=== PATIENT | female | born 1965 | race American Indian/Alaskan Native ===

== ENCOUNTER 2018-08-05 17:36 | Inpatient (IN) | payer BC ==
[2018-08-05] MEDS ORDERED: ZOFRAN IV PRN (18:03)
[2018-08-05] MEDS ORDERED: MORPHINE IV PRN (18:04)
[2018-08-06 01:30] LABS: Basophils % (Auto) 0.3 % (0.0-1.8); Eosinophils % (Auto) 0.4 % (0.0-4.3); Hematocrit 38.8 % (30.3-42.9); Hemoglobin 13.2 gm/dl (10.1-14.3); Lymphocytes # (Auto) 1.3 K/mm3 (1.2-5.4); Lymphocytes % (Auto) 13.5 % (13.4-35.0); Mean Corpuscular HGB Conc 34 % (30-34); Mean Corpuscular Volume 87 fl (79-97); Monocytes # (Auto) 0.7 K/mm3 (0.0-0.8); Monocytes % (Auto) 7.6 % (0.0-7.3); Platelet Count 273 K/mm3 (140-440); Red Blood Count 4.47 M/mm3 (3.65-5.03); Red Cell Distribution Width 13.7 % (13.2-15.2)
[2018-08-06 01:34] LABS: INR 0.91 (0.87-1.13)
[2018-08-06 01:48] LABS: Alanine Aminotransferase 16 units/L (7-56); Albumin 3.6 g/dL (3.9-5); BUN/Creatinine Ratio 13; Blood Urea Nitrogen 8 mg/dL (7-17); Calcium 8.9 mg/dL (8.4-10.2); Hemolysis Index 9
--- NOTE | 2018-08-06 01:59 | History and Physical Report ---
History of Present Illness Date of examination: 08/06/18 Date of admission: 08/05/18 17:53 Chief complaint: abdominal pain History of present illness: 53 yo female with a hx of gastric bypass 2014 presented at outside hospital with 12 hour hx of acute worsening abdominal pain, with non bilious vomiting. She says she had a bowel movement several hours after the pain started, but does not remember passing gas since the pain began. She had normal labs and vitals, but completed a CT scan a/p that showed a small bowel obstruction. She was transferred to [facility] for treatment and care. She said about a year ago she was admitted for similar symptoms at an outside hospital for three days. She was given a laxative and a colonoscopy and told to follow up with GI. Past History Past Medical History: hypertension, other (mitral valve prolapse - symptomatic) Past Surgical History: , hysterectomy, Other (gastric bypass) Family history: other (unknown - she is adopted) Medications and Allergies Allergies Allergy/AdvReac Type Severity Reaction Status Date / Time No Known Allergies Allergy Unverified 08/06/18 01:55 Home Medications Medication Instructions Recorded Confirmed Last Taken Type Calcium 1 tab PO DAILY 08/06/18 08/06/18 Unknown History Calcium Citrate/Vitamin D3 1 each PO DAILY 08/06/18 08/06/18 Unknown History [Calcitrate + Vit D Caplet] Centrum Silver Women Tablet 1 tab PO DAILY 08/06/18 08/06/18 Unknown History Docusate Sodium [Move It Along] 100 mg PO BID 08/06/18 08/06/18 Unknown History Estrogens, Conjugated [Premarin] 0.625 mg PO DAILY 08/06/18 08/06/18 Unknown History Labetalol [Normodyne TAB] 08/06/18 Unknown History Lactulose 10 gm PO BID 08/06/18 08/06/18 Unknown History Multivit-Minerals/Folic Acid 1 tab PO DAILY 08/06/18 08/06/18 Unknown History [Adult One Daily Multivit Tab] Verapamil HCl [Verapamil] 25 mg PO DAILY 08/06/18 08/06/18 Unknown History Active Meds: Active Medications Enoxaparin Sodium (Lovenox) 40 mg SUB-Q QDAY NATIVIDAD Lactated Ringer's (Lactated Ringers) 1,000 mls @ 125 mls/hr IV DIRECT NATIVIDAD Morphine Sulfate (Morphine) 2 mg IV Q4H PRN PRN Reason: Pain, Moderate (4-6) Ondansetron HCl (Zofran) 4 mg IV Q4H PRN PRN Reason: Nausea And Vomiting Review of Systems - Gastrointestinal abdominal pain, nausea, vomiting - Muskuloskeletal low back pain Exam Vital Signs Temp Pulse Resp BP Pulse Ox 98.3 F 67 20 144/90 97 08/06/18 01:11 08/06/18 01:11 08/06/18 01:11 08/06/18 01:11 08/06/18 01:11 - General physical appearance Positive: well developed, well nourished, no distress - Eyes Positive: PERRL - Respiratory Positive: normal expansion, normal respiratory effort - Extremities Extremities: no ischemia - Abdomen Abdomen: Present: soft, distended, other (generalized tenderness to deep palpation. no rebound or guarding) Hernia: none - Genitourinary Female Genitourinary: deferred - Neurologic Neurologic: alert and oriented to time, place and person, motor strength and sensation are grossly intact - Musculoskeletal normal gait - Psychiatric Psychiatric: appropriate mood/affect Results - Labs 08/06/18 00:58 08/06/18 00:58 Abnormal lab results 08/06/18 08/06/18 Range/Units 00:58 00:58 Crenshaw % (Auto) 7.6 H (0.0-7.3) % Seg Neutrophils % 78.2 H (40.0-70.0) % Potassium 3.4 L (3.6-5.0) mmol/L Creatinine 0.6 L (0.7-1.2) mg/dL Total Protein 6.2 L (6.3-8.2) g/dL Albumin 3.6 L (3.9-5) g/dL Diabetes panel 08/06/18 Range/Units 00:58 Sodium 140 (137-145) mmol/L Potassium 3.4 L (3.6-5.0) mmol/L Chloride 101.1 (98-107) mmol/L Carbon Dioxide 23 (22-30) mmol/L BUN 8 (7-17) mg/dL Creatinine 0.6 L (0.7-1.2) mg/dL Glucose 98 (65-100) mg/dL Calcium 8.9 (8.4-10.2) mg/dL AST 15 (5-40) units/L ALT 16 (7-56) units/L Alkaline Phosphatase 108 (35-129) units/L Total Protein 6.2 L (6.3-8.2) g/dL Albumin 3.6 L (3.9-5) g/dL Calcium panel 08/06/18 Range/Units 00:58 Calcium 8.9 (8.4-10.2) mg/dL Albumin 3.6 L (3.9-5) g/dL Pituitary panel 08/06/18 Range/Units 00:58 Sodium 140 (137-145) mmol/L Potassium 3.4 L (3.6-5.0) mmol/L Chloride 101.1 (98-107) mmol/L Carbon Dioxide 23 (22-30) mmol/L BUN 8 (7-17) mg/dL Creatinine 0.6 L (0.7-1.2) mg/dL Glucose 98 (65-100) mg/dL Calcium 8.9 (8.4-10.2) mg/dL Adrenal panel 08/06/18 Range/Units 00:58 Sodium 140 (137-145) mmol/L Potassium 3.4 L (3.6-5.0) mmol/L Chloride 101.1 (98-107) mmol/L Carbon Dioxide 23 (22-30) mmol/L BUN 8 (7-17) mg/dL Creatinine 0.6 L (0.7-1.2) mg/dL Glucose 98 (65-100) mg/dL Calcium 8.9 (8.4-10.2) mg/dL Total Bilirubin 0.90 (0.1-1.2) mg/dL AST 15 (5-40) units/L ALT 16 (7-56) units/L Alkaline Phosphatase 108 (35-129) units/L Total Protein 6.2 L (6.3-8.2) g/dL Albumin 3.6 L (3.9-5) g/dL - Imaging Chest x-ray: other (verbal report from outside hospital said small bowel transition point in the LUQ with dilated bowel. no free air, or fluid) Assessment and Plan A: small bowel obstruction, stable P: admit IV fluids follow up lactic acid level take for diagnostic laparoscopy
[2018-08-06] MEDS: LACTATED RINGERS 1,000 ML IV SCH (02:21)
[2018-08-06] MEDS ORDERED: KCL 10MEQ/100ML 10 MEQ/100 ML BAG IV ONE (03:02)
[2018-08-06] MEDS: LOVENOX SUB-Q SCH (09:00)
[2018-08-06] MEDS ORDERED: MARCAINE-EPI 0.5%-1:200,000 INFILTRATI ONE (09:00)
[2018-08-06] MEDS ORDERED: ceFAZolin 2 GM in NACL 0.9% 100 ML IV ONE (09:00)
[2018-08-06] MEDS ORDERED: XYLOCAINE 2% INFILTRATI ONE ×2 (09:01→09:49)
[2018-08-06] MEDS ORDERED: DECADRON ONE (09:03)
[2018-08-06] MEDS ORDERED: QUELICIN ONE (09:03)
[2018-08-06] MEDS ORDERED: ZEMURON IV ONE (09:03)
[2018-08-06] MEDS ORDERED: ZOFRAN ONE (09:03)
[2018-08-06] MEDS ORDERED: SUBLIMAZE ONE ×2 (09:04→11:22)
[2018-08-06] MEDS ORDERED: DIPRIVAN 10 MG/ML IV ONE (09:05)
[2018-08-06] MEDS ORDERED: WATER FOR IRRIG STERILE IR ONE (09:22)
--- NOTE | 2018-08-06 09:28 | Anesthesia Consultation ---
Anesthesia Consult and Med Hx Date of service: 08/06/18 - Airway Anesthetic Teeth Evaluation: Good ROM Head & Neck: Adequate Mental/Hyoid Distance: Adequate Mallampati Class: Class II Intubation Access Assessment: Good - Pulmonary Exam CTA: Yes - Cardiac Exam Cardiac Exam: RRR - Pre-Operative Health Status ASA Pre-Surgery Classification: ASA3 Proposed Anesthetic Plan: General - Cardiovascular System Hx Hypertension: Yes - Other Systems Hx Cancer: No
[2018-08-06] MEDS ORDERED: DILAUDID IV PRN (09:29)
[2018-08-06] MEDS ORDERED: NARCAN 0.4 MG/1 ML IV PRN (09:29)
[2018-08-06] MEDS ORDERED: ZOFRAN IV PRN (09:29)
--- NOTE | 2018-08-06 09:29 | Anesthesia Day of Surgery ---
Anesthesia Day of Surgery - Day of Surgery Patient Examined: Yes Patient H&P Reviewed: Yes Patient is NPO: Yes Beta Blockers: Yes Cardiac Clearance: No Pulmonary Clearance: No
[2018-08-06] MEDS ORDERED: NORMODYNE IV ONE (09:37)
[2018-08-06] MEDS ORDERED: LACTATED RINGERS 1,000 ML ONE (09:37)
[2018-08-06] MEDS ORDERED: FLAGYL 500 MG/100 ML 500 MG/100 ML BAG IV ONE (09:45)
[2018-08-06] MEDS ORDERED: ANCEF/STERILE WATER 2 GM/20 ML 2 GM/20 ML SYRINGE IV ONE (09:45)
[2018-08-06] MEDS ORDERED: MARCAINE 0.25% INFILTRATI ONE (09:49)
[2018-08-06] MEDS ORDERED: FLAGYL 500 MG/100 ML 500 MG/100 ML BAG IV NR (10:00)
[2018-08-06] MEDS ORDERED: TORADOL ONE (10:40)
[2018-08-06] MEDS ORDERED: BLOXIVERZ ONE (10:41)
[2018-08-06] MEDS ORDERED: ROBINUL ONE (10:41)
[2018-08-06] MEDS ORDERED: MYLICON PO PRN (11:00)
[2018-08-06] MEDS ORDERED: APRESOLINE IV PRN (11:00)
[2018-08-06] MEDS ORDERED: REGLAN IV PRN (11:00)
[2018-08-06] MEDS: SUBLIMAZE IV PRN ×2 (11:20→11:38)
--- NOTE | 2018-08-06 11:38 | Operative Report ---
Operative Report Operative Report: Date: 08/06/18 Surgeon: Lanre Hi MD Co-Surgeon: Sammi Boogie MD Anesthesia : GETA Pre-op Dx: small bowel obstruction Post op Dx: small bowel obstruction due to adhesive band Procedure: Diagnostic laparoscopy, transection of adhesive band, EGD EBL: minimal Complications: none Indication: Pt is a 53 year old female with a hx of gastric bypass 2014. She presented to an outside hospital with a 12 hour hx of abdominal pain, nausea and vomiting. Work up with with CT scan showed a probable small bowel obstruction. She had normal vital signs and laboratory values and was transferred safely to [facility]. Continuing to be stable, and no worsening of clinical symptoms she was schedule for a dx lap. She signed informed consent and expressed understanding of the risks and benefits. Procedure: She was brought into OR suite and laid on the table in supine position. Bilateral SCD were placed followed by induction with general anesthesia without complication. Preoperative antibiotics were given, all pressure points were padded and her abdomen was prepped and drapped in sterile fashion. Starting with a stab incision and the umbilicus and veress needle was used to insuflate the abdomen to a pressure of 15mmHg. A 5mm trocar was place via optiview technique on the left side of the abdomen. Three working trocars were placed under direct visualization, 5mm trocars on the LUQ, RUQ, and a 12 mm trocar on the right mid abdomen. Upon initial visualization there was noted to be no injury to any intra-abdominal structures and there were no massively dilated loops of small bowel and no signs of ischemia. At this point the common channel was run distal to proximal starting from the terminal ileum. There was not resistance, there was however noted a long think band of adhesive scar tissue spanning from the TI to the left side of the abdomen. It was thought to be the likely cause of the intermittent obstruction. The small bowel was traced to the jeju-jejunostomy without incident. The kasia limb and BP limb were identified and found to be without compromise. The mesentery was inspected for internal hernia at the base of the jeju-jejunosty and between the transverse colon and kasia limb. There were no openings present consistent with an internal hernia. An EGD was performed that showed a normal gastric pouch, gastro- jejunostomy about 10-15mm in diameter and no signs of marginal ulcer. At this point it was felt that likely cause of her symptoms was the adhesive band and the procedure was terminated. The 12mm trocar site was closed with a humera- isidra device and #1 PDS suture. The abdomen was desuflated after watching the trocars removed under direct visualization and no signs of bleeding. The trocars were locally anesthetized with 2% lidocaine, closed with 4-O monocryl followed by adhesive bandage glue. The patient was awoken safely and taken to recovery in stable condition. All counts were correct.
[2018-08-06] MEDS: ANCEF/NS 1 GM/50 ML 1 GM/50 ML BAG IV SCH ×3 (12:00→17:24)
[2018-08-06] MEDS: D5W/0.45% NACL/KCL 20 MEQ 20 MEQ/1,000 ML BAG IV SCH ×2 (12:02→20:06)
[2018-08-06] MEDS: CALAN PO SCH ×2 (13:00→21:58)
[2018-08-06] MEDS ORDERED: LOVENOX SUB-Q SCH (13:00)
[2018-08-06] MEDS: TORADOL IV SCH ×2 (13:47→20:30)
[2018-08-06] MEDS: FLAGYL 500 MG/100 ML 500 MG/100 ML BAG IV SCH ×2 (13:49→21:52)
[2018-08-06 13:58] LABS: Hematocrit 38.8 % (30.3-42.9); Hemoglobin 13.2 gm/dl (10.1-14.3); Mean Corpuscular HGB Conc 34 % (30-34); Mean Corpuscular Volume 87 fl (79-97); Platelet Count 258 K/mm3 (140-440); Red Blood Count 4.47 M/mm3 (3.65-5.03); Red Cell Distribution Width 13.6 % (13.2-15.2)
[2018-08-06 14:19] LABS: BUN/Creatinine Ratio 15; Blood Urea Nitrogen 9 mg/dL (7-17); Calcium 8.4 mg/dL (8.4-10.2); Hemolysis Index 16
[2018-08-06] MEDS ORDERED: NORCO PO PRN (15:00)
[2018-08-06 15:26] LABS: Band Neutrophils # (Manual) 0.2 K/mm3; Basophils % (Manual) 0 % (0.0-1.8); Total Cells Counted 100
[2018-08-06 15:27] LABS: RBC Morphology Normal
[2018-08-06] MEDS: NORMODYNE PO SCH (21:58)
[2018-08-07] MEDS: TORADOL IV SCH ×4 (04:17→20:09)
[2018-08-07] MEDS: ANCEF/NS 1 GM/50 ML 1 GM/50 ML BAG IV SCH (04:17)
[2018-08-07] MEDS: D5W/0.45% NACL/KCL 20 MEQ 20 MEQ/1,000 ML BAG IV SCH (04:22)
[2018-08-07 04:52] LABS: Basophils % (Auto) 0.2 % (0.0-1.8); Eosinophils % (Auto) 0.5 % (0.0-4.3); Hematocrit 34.4 % (30.3-42.9); Lymphocytes # (Auto) 1.4 K/mm3 (1.2-5.4); Lymphocytes % (Auto) 15.7 % (13.4-35.0); Mean Corpuscular HGB Conc 35 % (30-34); Mean Corpuscular Volume 86 fl (79-97); Monocytes # (Auto) 0.6 K/mm3 (0.0-0.8); Monocytes % (Auto) 6.5 % (0.0-7.3); Platelet Count 268 K/mm3 (140-440); Red Cell Distribution Width 13.7 % (13.2-15.2)
[2018-08-07 05:16] LABS: BUN/Creatinine Ratio 11; Blood Urea Nitrogen 8 mg/dL (7-17); Calcium 8.6 mg/dL (8.4-10.2); Hemolysis Index 2
[2018-08-07] MEDS: FLAGYL 500 MG/100 ML 500 MG/100 ML BAG IV SCH (05:54)
[2018-08-07] MEDS: CALAN PO SCH ×2 (05:54→15:07)
--- NOTE | 2018-08-07 08:52 | Progress Note ---
Assessment and Plan A: POD #1 s/p dx lap for small bowel obstruction, with lysis of adhesive band, stable, afebrile and tolerating diet. P: Will advance diet as tolerated, continue ambulation and incentive spirometer. if continues to progress well with discharge home tomorrow. Subjective Date of service: 08/07/18 Patient Reports: Positive: feels better, tolerating liquids well, flatus Objective Vital Signs - 12hr 08/07/18 08/07/18 00:09 04:29 Temperature 98.1 F 98.0 F Pulse Rate 73 67 Respiratory 16 17 Rate Blood Pressure 117/62 134/71 O2 Sat by Pulse 93 95 Oximetry - General physical appearance well developed, well nourished, no distress - Respiratory normal expansion, normal respiratory effort - Abdomen soft, other (incisions c/d/i, appropriatley tender to palpation) - Labs 08/07/18 04:38 08/07/18 04:38 Diabetes panel 08/06/18 08/07/18 Range/Units 13:37 04:38 Sodium 135 L 140 (137-145) mmol/L Potassium 4.1 D 3.7 (3.6-5.0) mmol/L Chloride 97.2 L 103.5 (98-107) mmol/L Carbon Dioxide 24 24 (22-30) mmol/L BUN 9 8 (7-17) mg/dL Creatinine 0.6 L 0.7 (0.7-1.2) mg/dL Glucose 139 H 129 H (65-100) mg/dL Calcium 8.4 8.6 (8.4-10.2) mg/dL Calcium panel 08/06/18 08/07/18 Range/Units 13:37 04:38 Calcium 8.4 8.6 (8.4-10.2) mg/dL Pituitary panel 08/06/18 08/07/18 Range/Units 13:37 04:38 Sodium 135 L 140 (137-145) mmol/L Potassium 4.1 D 3.7 (3.6-5.0) mmol/L Chloride 97.2 L 103.5 (98-107) mmol/L Carbon Dioxide 24 24 (22-30) mmol/L BUN 9 8 (7-17) mg/dL Creatinine 0.6 L 0.7 (0.7-1.2) mg/dL Glucose 139 H 129 H (65-100) mg/dL Calcium 8.4 8.6 (8.4-10.2) mg/dL Adrenal panel 08/06/18 08/07/18 Range/Units 13:37 04:38 Sodium 135 L 140 (137-145) mmol/L Potassium 4.1 D 3.7 (3.6-5.0) mmol/L Chloride 97.2 L 103.5 (98-107) mmol/L Carbon Dioxide 24 24 (22-30) mmol/L BUN 9 8 (7-17) mg/dL Creatinine 0.6 L 0.7 (0.7-1.2) mg/dL Glucose 139 H 129 H (65-100) mg/dL Calcium 8.4 8.6 (8.4-10.2) mg/dL
[2018-08-07] MEDS: LOVENOX SUB-Q SCH (09:18)
[2018-08-07] MEDS: NORMODYNE PO SCH (09:18)
[2018-08-07] MEDS: LACTATED RINGERS 1,000 ML IV SCH (22:04)
[2018-08-08] MEDS: CALAN PO SCH ×2 (00:05→07:49)
[2018-08-08] MEDS: NORMODYNE PO SCH ×2 (00:40→08:39)
[2018-08-08] MEDS: TORADOL IV SCH ×2 (03:24→08:38)
[2018-08-08 07:50] VITALS: BP 126/63
[2018-08-08] MEDS: LOVENOX SUB-Q SCH (08:39)
--- NOTE | 2018-08-08 09:16 | Discharge Summary ---
Providers - Providers Date of Admission: 08/05/18 17:53 Date of discharge: 08/08/18 Attending physician: ELIZABETH ACOSTA MD Primary care physician: ELIZABETH ACOSTA MD Hospitalization Reason for admission: transfer from OSH for small bowel obstruction Condition: Good Procedures: diagnostic laparoscopy with lysis of adhesive band and EGD Hospital course: Pt was admitted from OSH with small bowel obstruction. She was taken urgently for diagnostic lap where a thick inflammatory adhesive band was found and though t the be the cause of her obstruction. There were no other obvious reasons for obstruction found. She recovered well and tolerated diet well and remained stable the entire hospital stay. she was discharged to home and told to follow up in the office in two weeks. Disposition: DC- TO HOME OR SELFCARE Core Measure Documentation - Palliative Care Palliative Care/ Comfort Measures: Not Applicable - Core Measures Any of the following diagnoses?: none - VTE Discharge Requirements Deep Vein Thrombosis/Pulmonary Embolism Present on Admission: No Exam - Constitutional Vitals: Temp Pulse Resp BP Pulse Ox 98.3 F 78 18 126/63 93 08/08/18 07:21 08/08/18 07:21 08/08/18 07:21 08/08/18 07:21 08/08/18 07:21 General appearance: Present: no acute distress - Respiratory Respiratory effort: normal - Abdominal General gastrointestinal: Present: soft, non-tender - Integumentary Integumentary: Present: warm, dry - Psychiatric Psychiatric: appropriate mood/affect Plan Activity: advance as tolerated Diet: advance as tolerated, other (low carbohydrate) Follow up with: ELIZABETH ACOSTA MD [Primary Care Provider] - 7 Days Prescriptions: oxyCODONE /ACETAMINOPHEN [Percocet 5/325] 1 tab PO Q6HR PRN #20 tab PRN Reason: Pain , Severe (7-10)
== END 2018-08-08 10:40 | disposition home or self-care (01) | DRG 358 ==
LOC: UNDOADMIN 17:36 → 3A 17:36 → 3B-SURG 17:53
PROVIDERS: ADMIT Surgery; ATTEND Surgery
PROC: 0WJP4ZZ Inspection of Gastrointestinal Tract, Percutaneous Endoscopic Approach (ICD-10-PCS; principal; 2018-08-06)
PROC: 0DJ08ZZ Inspection of Upper Intestinal Tract, Via Natural or Artificial Opening Endoscopic (ICD-10-PCS; 2018-08-06)
DX: K56.50 Intestinal adhesions [bands], unspecified as to partial versus complete obstruction (principal); I10 Essential (primary) hypertension; Z98.84 Bariatric surgery status; Z90.710 Acquired absence of both cervix and uterus; Z79.899 Other long term (current) drug therapy
CPT/HCPCS: 36415; 80048; 80053; 82140; 85007; 85025; 85610; 88302; 88305; G0378; J0330; J0690; J1100; J1650; J1885; J2270; J2405; J2704; J2710; J3010; J3480; J7120